=== PATIENT | male | born 1955 | race Hispanic/Latino ===

== ENCOUNTER 2018-05-17 14:02 | Emergency (ER) | payer SELFPAY ==
[~2018-05-17] VITALS: Ht 175.3 cm; Wt 90.7 kg
[2018-05-17] MEDS ORDERED: NEOMYCIN/POLYMYX/BACITR OINT 0.9 GM PKT TOP ONE (14:15)
[2018-05-17] MEDS ORDERED: LIDOCAINE HCL 1% LOCAL INJ 20 ML VIAL INJ NR (14:15)
--- NOTE | 2018-05-17 14:46 | Diagnostic Imaging Report ---
PROCEDURE:HAND RIGHT 2 VIEWS COMPARISON:None. INDICATIONS:LACERATION TO PALM OF HAND, BETWEEN THUMB AND 1ST FINGER FINDINGS:There is no fracture or dislocation. No radiopaque metallic foreign body. CONCLUSION:No acute abnormality. Terrance Maher D.O. Dictated by: Terrance Maher D.O. on 05/17/2018 at 14:57 Electronically approved by: Terrance Maher D.O. on 05/17/2018 at 14:57
[2018-05-17 16:13] VITALS: BP 144/89
[2018-05-17] MEDS ORDERED: TETANUS/DIPHTHERIA TOX ADULT 0.5 ML SYR IM ONE (16:15)
== END 2018-05-17 16:19 | disposition home or self-care (01) ==
LOC: ER 14:02
DX: S61.411A Laceration without foreign body of right hand, initial encounter (principal); W45.8XXA Other foreign body or object entering through skin, initial encounter; Y92.009 Unspecified place in unspecified non-institutional (private) residence as the place of occurrence of the external cause; Z28.21 Immunization not carried out because of patient refusal
CPT/HCPCS: 12042; 73120; 99284; J2001